=== PATIENT | male | born 1985 | race Hispanic/Latino ===

== ENCOUNTER 2023-05-06 10:39 | Outpatient (CLI) | payer BC | END 2023-05-06 10:40 | disposition home or self-care (01) | LOC: CSHULT 10:39 | PROVIDERS: ATTEND Internal Medicine Gastroenterology | DX: B19.20 Unspecified viral hepatitis C without hepatic coma (principal); K76.0 Fatty (change of) liver, not elsewhere classified | CPT/HCPCS: 76705 ==

== ENCOUNTER 2023-05-09 21:20 | Emergency (ER) | payer BC | END 2023-05-09 23:31 | disposition home or self-care (01) | LOC: CSHERS 21:20 | DX: J20.9 Acute bronchitis, unspecified (principal) | CPT/HCPCS: 71045 ==